=== PATIENT | female | born 1970 | race Caucasian/White ===

== ENCOUNTER 2017-02-19 08:38 | Emergency (ER) | payer OTHER ==
--- NOTE | 2017-02-19 08:59 | ED Physician Documentation ---
History of Present Illness - Stated complaint Stated Complaint: HEADACHE - Chief complaint Chief Complaint: Neuro - Additonal information Additional information: hx from pt and EMR per EMR long hx headaches - not migraines - has had an extensive workup including multiple MRIs and LPs to rule out pseudotumor cerebri - pt states her HERNANDEZ mimic this entitiy and she did occ have relief with removing CSF infreq ER user - last vist 18 m ago - was successfully txed with toradol benadryl compazine and decadron this HERNANDEZ is similar to prior but has been going on for 6 weeks, is throbiing but also needle like and she has popping in her neck no fever no numbness or weakness no CO exposure n trauma denies preg has tried her mm relaxant diuretic magenesium and antidepressant combo at home - usually works for her but this time s relief Review of Systems Constitutional: denies: Fever, Chills Eyes: reports: Photophobia Ears: denies: Loss of hearing (whooshing in her ears) Cardiac: denies: Chest pain / pressure Respiratory: denies: Dyspnea, Cough GI: denies: Abdominal Pain : denies: Now EGA (denies) Musculoskeletal: reports: Neck pain (pops) Neurologic: reports: Headache. denies: Generalized weakness, Focal weakness, Numbness, Head injury Endocrine: denies: Easy bruising / bleeding Immunocompromised: denies: Immunocompromised PD PAST MEDICAL HISTORY - Past Medical History Cardiovascular: None Respiratory: None Neuro: Headache/migraine Endocrine/Autoimmune: None HEENT: None - Past Surgical History Past Surgical History: Yes General: Cholecystectomy /RN SCHOOL: section - Present Medications Home Medications: Ambulatory Orders Medication Instructions Recorded Confirmed Furosemide [Lasix] 0 mg PO DAILY 07/29/15 02/19/17 Gabapentin 0 mg PO TID 07/29/15 02/19/17 Multivitamin [Multivitamins] 1 tab PO DAILY 07/29/15 02/19/17 Ondansetron HCl [Zofran] 0 mg PO DAILY 07/29/15 02/19/17 Promethazine [Phenergan] 0 mg PO DAILY 07/29/15 02/19/17 Ropinirole HCl [Requip] 0 mg PO DAILY 07/29/15 02/19/17 Ergocalciferol [Vitamin D2] 50,000 unit PO Q7D 02/19/17 02/19/17 Magnesium Oxide 500 mg PO DAILY 02/19/17 02/19/17 Mirtazapine [Remeron] 15 mg PO HS 02/19/17 02/19/17 Pantoprazole [Protonix] 40 mg PO DAILY 02/19/17 02/19/17 tiZANidine [Zanaflex] 2 mg PO Q8H 02/19/17 02/19/17 traZODone [Desyrel] 50 mg PO HS 02/19/17 02/19/17 - Allergies Allergies/Adverse Reactions: Allergies Allergy/AdvReac Type Severity Reaction Status Date / Time codeine AdvReac Unknown Verified 02/19/17 08:44 ibuprofen [From Motrin] AdvReac Unknown Verified 02/19/17 08:44 morphine AdvReac Unknown Verified 02/19/17 08:44 sucralfate [From Carafate] AdvReac Unknown Verified 02/19/17 08:44 Sulfa (Sulfonamide AdvReac Unknown Verified 02/19/17 08:44 Antibiotics) sumatriptan [From Imitrex] AdvReac Unknown Verified 02/19/17 08:44 sumatriptan succinate * AdvReac Unknown Verified 02/19/17 08:44 [From Imitrex] topiramate [From Topamax] AdvReac Unknown Verified 02/19/17 08:44 zolmitriptan [From Zomig] AdvReac Unknown Verified 02/19/17 08:44 - Social History Does the pt smoke?: No Smoking Status: Never smoker Does the pt drink ETOH?: No Does the pt have substance abuse?: No - Immunizations Immunizations are current?: Yes PD ED PE NORMAL - Vitals Vital signs reviewed: Yes - General General: Alert and oriented X 3 - HEENT HEENT: PERRL (3, reactive EOMI, globes soft, no TA TTP) - Neck Neck: Supple, no meningeal sign - Cardiac Cardiac: RRR - Respiratory Respiratory: No respiratory distress, Clear bilaterally - Abdomen Abdomen: Soft, Non tender - Derm Derm: Normal color - Neuro Neuro: Alert and oriented X 3 Eye Opening: Spontaneous Motor: Obeys Commands Verbal: Oriented GCS Score: 15 Results - Vitals Vitals: Vital Signs - 24 hr 02/19/17 08:41 Temperature 36.4 C L Heart Rate 87 Respiratory 16 Rate Blood Pressure 137/77 H O2 Saturation 100 Oxygen O2 Source Room air PD MEDICAL DECISION MAKING - ED course ED course: reviewed EMR and gave pt same meds as worked last time + lido patch for her neck pt felt better with meds Departure - Departure Disposition: 01 Home, Self Care Clinical Impression: Headache Qualifiers: Headache type: unspecified Headache chronicity pattern: unspecified pattern Intractability: not intractable Qualified Code(s): R51 - Headache Condition: Good Instructions: ED Cephalgia Unspecified Comments: Take the lidocaine patch off before bedtime tonight Continue all of your usual headache medications. Rest and drink plenty of fluids Forms: Activity restrictions
[2017-02-19] MEDS ORDERED: LIDOCAINE PATCH 5% TOP STA (09:07)
[2017-02-19] MEDS ORDERED: diphenhydrAMINE INJ 50 MG/ML VIAL IVP STA (09:07)
[2017-02-19] MEDS ORDERED: DEXAMETHASONE 10 MG/ML VIAL IVP STA (09:07)
[2017-02-19] MEDS ORDERED: KETOROLAC 60 MG/2 ML VIAL IVP STA (09:07)
[2017-02-19] MEDS ORDERED: SODIUM CHLORIDE 0.9% 1,000 ML IV ONE (09:07)
[2017-02-19] MEDS ORDERED: PROCHLORPERAZINE 10 MG/2 ML VIAL IVP STA (09:07)
[2017-02-19 10:50] VITALS: BP 136/86
== END 2017-02-19 10:50 | disposition home or self-care (01) ==
LOC: ED 08:38
DX: R51 Headache (principal)
CPT/HCPCS: 96374; 96375; 99283; 99284; A9270

== ENCOUNTER 2022-01-28 08:05 | Outpatient (CLI) | payer OTHER ==
--- NOTE | 2022-01-29 08:40 | MRI Report ---
PROCEDURE: KNEE WO - RT INDICATIONS: PAIN IN RIGHT KNEE TECHNIQUE: Noncontrast sagittal PD fast spin echo and T2 fast spin echo with fat saturation, sagittal 3-D spoile d GE with fat saturation; coronal T1 spin echo and PD fast spin echo with fat saturation, and axial P D fast spin echo with fat saturation through the knee. COMPARISON: None. FINDINGS: Image quality: Excellent. Anterior cruciate ligament: Intact. Posterior cruciate ligament: Intact. Medial collateral ligament: Intact. Lateral collateral ligament: Intact. Medial meniscus: There is free edge fibrillation at the body of the medial meniscus with a discrete tear. Mild intrasubstance degeneration is noted. Lateral meniscus: Mild intrasubstance degeneration within the body lateral meniscus without a discre te tear. Medial and lateral tendons: There is mild insertional tendinosis of the distal semimembranosus tendon . Visualized portions of the pes anserinus tendons appear normal. The popliteus tendon appears inta ct. Iliotibial band appears normal. Anterior structures: Mild patella abida. The distal quadriceps tendon is intact. There is no patellar subluxation. No femoral trochlear dysplasia or ventral trochlear prominence. Mild edema is seen at th e superolateral aspect of the infrapatellar fat pad. Bones: No acute trabecular bone injury or fracture. Medial femorotibial cartilage: Moderate partial-thickness cartilage irregularity is seen throughout the weightbearing portion of the medial femoral condyle with marginal osteophyte formation. Lateral femorotibial cartilage: There is deep cartilage fissuring at the central weightbearing porti on of the lateral femoral condyle and partial-thickness cartilage irregularity at the posterior weigh tbearing portion and mild surface cartilage irregularity and adjacent portions of the lateral tibial plateau. Small marginal osteophytes are present. Patellofemoral cartilage: Full-thickness cartilage loss is seen at the median ridge of the patella w ith subchondral cystic changes. There is adjacent high-grade partial thickness cartilage loss at the medial and lateral patellar facets as well as in the trochlear groove and medial femoral trochlea. Ma rginal osteophytes are present. Soft tissues: There is a medium-sized joint effusion. A moderate medial popliteal cyst is seen with adjacent soft tissue edema that may indicate prior cyst rupture. The musculature surrounding the kne e is normal in bulk. IMPRESSION: 1.Mild free edge fibrillation at the body of the medial meniscus without a discrete meniscal tear barby ntified. Mild intrasubstance degeneration of the medial and lateral menisci. 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 There is grade II to III chondromalacia in the medial and lateral compartments. 3 compar tmental marginal osteophytes are present. 3.Mild patella abida. Small amount of edema at the superolateral aspect of Hoffa's fat pad may be rela phuong to the joint effusion versus lateral femoral condyle-patellar tendon friction syndrome. 4.Cruciate and collateral ligaments are intact. No acute trabecular bone injury. 5.Moderate joint effusion. Moderate medial popliteal cyst with signs of prior cyst rupture. Reviewed by: Puma Mckenzie MD on 01/29/2022 8:39 AM PST Approved by: Puma Mckenzie MD on 01/29/2022 8:39 AM PST Station ID: [id number]
== END 2022-01-28 08:06 | disposition home or self-care (01) ==
LOC: DI 08:05
PROVIDERS: ATTEND Family Medicine
DX: M17.11 Unilateral primary osteoarthritis, right knee (principal); M94.261 Chondromalacia, right knee; M25.461 Effusion, right knee; M23.303 Other meniscus derangements, unspecified medial meniscus, right knee; M23.300 Other meniscus derangements, unspecified lateral meniscus, right knee

== ENCOUNTER 2023-02-21 19:55 | Emergency (ER) | payer OTHER ==
--- NOTE | 2023-02-21 20:07 | ED Physician Documentation ---
PD HPI CHEST PAIN - Stated complaint Stated Complaint: CHEST PX/GEN. WEAKNESS - Chief complaint Chief Complaint: Cardiac - History obtained from History obtained from: Patient - Additional information Additional information: 52 yo female presents to the ER with chest pain. Hx of fibromyalgia and gastroparesis states she was cooking in the kitchen when she started to feel week and states "my legs collapsed" she says this happened twice and then about an hour later she started experiencing chest pain that radiated to her left side. Currently she denies nausea, vomiting, dizziness or vision changes. Pt denies hitting head when she states she collapsed at home and states nothing like this has ever happened before. PD PAST MEDICAL HISTORY - Past Medical History Cardiovascular: None Respiratory: None Endocrine/Autoimmune: None HEENT: None - Past Surgical History Past Surgical History: Yes General: Cholecystectomy /[employer]: section - Present Medications Home Medications: Ambulatory Orders Medication Instructions Recorded Confirmed Furosemide [Lasix] 20 mg PO DAILY 07/29/15 02/21/23 Gabapentin 1,200 mg PO TID 07/29/15 02/21/23 Multivitamin [Multivitamins] 1 tab PO DAILY 07/29/15 02/21/23 Promethazine [Phenergan] 25 mg PO Q6HR PRN 07/29/15 02/21/23 Ergocalciferol [Vitamin D2] 50,000 unit PO Q7D 02/19/17 02/21/23 Magnesium Oxide 500 mg PO DAILY 02/19/17 02/21/23 tiZANidine [Zanaflex] 2 mg PO Q8H 02/19/17 02/21/23 traZODone [Desyrel] 50 mg PO HS PRN 02/19/17 02/21/23 Atorvastatin [Lipitor] 20 mg PO QPM 02/21/23 02/21/23 Ondansetron HCl 4 mg PO Q6HR PRN 02/21/23 02/21/23 Pantoprazole Sodium 20 mg PO BID 02/21/23 02/21/23 Potassium Chloride [Klor-Con 10] 10 meq PO DAILY 02/21/23 02/21/23 Prochlorperazine Maleate 10 mg PO BID 02/21/23 02/21/23 [Compazine] rOPINIRole [Requip] 2 mg PO QPM 02/21/23 02/21/23 traMADol [Ultram] 50 - 100 mg PO Q4-6H PRN 02/21/23 02/21/23 - Allergies Allergies/Adverse Reactions: Allergies Allergy/AdvReac Type Severity Reaction Status Date / Time codeine AdvReac Unknown Verified 02/21/23 20:11 ibuprofen [From Motrin] AdvReac Unknown Verified 02/21/23 20:11 morphine AdvReac Unknown Verified 02/21/23 20:11 sucralfate [From Carafate] AdvReac Unknown Verified 02/21/23 20:11 Sulfa (Sulfonamide AdvReac Unknown Verified 02/21/23 20:11 Antibiotics) sumatriptan [From Imitrex] AdvReac Unknown Verified 02/21/23 20:11 sumatriptan succinate * AdvReac Unknown Verified 02/21/23 20:11 [From Imitrex] topiramate [From Topamax] AdvReac Unknown Verified 02/21/23 20:11 zolmitriptan [From Zomig] AdvReac Unknown Verified 02/21/23 20:11 - Social History Does the pt smoke?: No Smoking Status: Never smoker Does the pt drink ETOH?: No Does the pt have substance abuse?: No - Immunizations Immunizations are current?: Yes PD ED PE NORMAL - Vitals Vital signs reviewed: Yes - General General: Alert and oriented X 3 - HEENT HEENT: Atraumatic, PERRL, EOMI - Neck Neck: No JVD - Cardiac Cardiac: RRR, No murmur, No gallop, Strong equal pulses - Respiratory Respiratory: No respiratory distress, Clear bilaterally - Abdomen Abdomen: Normal bowel sounds, Non tender - Derm Derm: Normal color - Extremities Extremities: No deformity, No edema, No calf tenderness / cord - Psych Psych: Normal mood Results - Vitals Vitals: Vital Signs - 24 hr 02/21/23 02/21/23 02/21/23 20:00 20:35 21:06 Temperature 36.4 C L 36.0 C L Heart Rate 76 84 74 Respiratory 18 18 15 Rate Blood Pressure 120/68 102/75 104/62 O2 Saturation 100 100 100 02/21/23 02/21/23 21:30 22:00 Temperature Heart Rate 75 75 Respiratory 17 12 Rate Blood Pressure 107/61 107/69 O2 Saturation 98 98 Oxygen O2 Source Room air - EKG (time done) 2013 EKG releavant findings:: EKG personally interpreted by author of this note. Relevant findings are: Rate: Rate (enter#) (74) Rhythm: NSR [facility]: Normal Intervals: Normal [place] QRS: Normal Ischemia: Normal ST segments Computer interpretation: Agree with computer - Labs Labs: Laboratory Tests 02/21/23 02/21/23 02/21/23 20:21 20:21 20:21 WBC 10.6 RBC 4.57 Hgb 13.1 Hct 41.2 MCV 90.2 MCH 28.7 MCHC 31.8 L RDW 13.3 Plt Count 383 MPV 9.1 Neut # (Auto) 6.9 H Lymph # (Auto) 2.9 Hardy # (Auto) 0.6 Eos # (Auto) 0.2 Baso # (Auto) 0.1 Absolute Nucleated RBC 0.00 Nucleated RBC % 0.0 Sodium 142 Potassium 3.5 Chloride 101 Carbon Dioxide 26 Anion Gap 15.0 H BUN 8 Creatinine 1.0 Estimated GFR (MDRD) 59 L Glucose 95 Calcium 9.6 Magnesium 2.1 Total Bilirubin 0.8 AST 16 ALT 15 Alkaline Phosphatase 88 Troponin I High Sens 2.4 Total Protein 7.9 Albumin 4.6 Globulin 3.3 Albumin/Globulin Ratio 1.4 - Rads (name of study) Chest x-ray Relevant Findings:: Final report received, EMP independent interpretation of test (No consolidation, no cardiomegaly, diminished lung volumes) PD Medical Decision Making - ED course ED course: Exam without evidence of volume overload so doubt heart failure. EKG without signs of active ischemia. Given the timing of pain to ER presentation, Delta troponin was ordered, initial troponin was negative second troponin is pending, Overall I have a low suspicion for this being related to an NSTEMI Presentation not consistent with acute PE (Wells low risk), pneumothorax (not visualized on chest xr), thoracic aortic dissection, pericarditis, tamponade, pneumonia (no infectious symptoms, clear chest xr), myocarditis (no recent illness, neg trop). HEART score:2 so plan to a discharge patient home with PCP follow up after 2nd troponin results if negative. CBC complete no leukocytosis no anemia, CMP also unremarkable, no electrolyte abnormalities. Report given to Dr. Mendez due to change of shift and will DC patient if 2nd troponins are negative. Pain treated with Tylenol and Toradol, nausea treated with zofran. Departure - Departure Clinical Impression: Atypical chest pain Instructions: ED Chest Pain NonCardiac Comments: Thank you for trusting us with your care. We have done a complete work up and are not seeing anything abnormal on your labs, chest X-ray, or ECG for possible heart attack or other emergent findings. If you go home and your chest pain worsens, you start to develope dizziness, shortness of breath, vision changes or any other concerning symptoms please come back to the emergency department for reevaluation. Forms: PCP List
[2023-02-21 20:30] LABS: BASOPHILS # (AUTO) 0.1 10^3/uL (0.0-0.1); BASOPHILS % (AUTO) 0.5 %; EOSINOPHILS # (AUTO) 0.2 10^3/uL (0.0-0.7); EOSINOPHILS % (AUTO) 1.6 %; HCT - HEMATOCRIT 41.2 % (37.0-47.0); HGB - HEMOGLOBIN 13.1 g/dL (12.0-16.0); LYMPHOCYTES # (AUTO) 2.9 10^3/uL (1.5-3.5); LYMPHOCYTES % (AUTO) 27.1 %; MEAN CORPUSCULAR HEMOGLOBIN 28.7 pg (27.0-31.0); MEAN CORPUSCULAR HGB CONC 31.8 g/dL (32.0-36.0); MEAN CORPUSCULAR VOLUME 90.2 fL (81.0-99.0); MEAN PLATELET VOLUME 9.1 fL (7.9-10.8); MONOCYTES # (AUTO) 0.6 10^3/uL (0.0-1.0); MONOCYTES % (AUTO) 5.8 %; NEUTROPHILS # (AUTO) 6.9 10^3/uL (1.5-6.6); NEUTROPHILS % (AUTO) 64.7 %; PLT - PLATELET COUNT 383 10^3/uL (130-450); RED BLOOD COUNT 4.57 10^6/uL (4.20-5.40); RED CELL DISTRIBUTION WIDTH 13.3 % (12.0-15.0); WHITE BLOOD COUNT 10.6 x10^3/uL (4.8-10.8)
--- NOTE | 2023-02-21 21:05 | XRAY Report ---
PROCEDURE: Chest 2V INDICATIONS: chest pain TECHNIQUE: 2 views of the chest were acquired. COMPARISON: None. FINDINGS: Surgical changes and devices: None. Lungs and pleura: Low lung volumes. No dense consolidation or pleural effusion. Mediastinum: Normal heart size Bones and chest wall: Limited evaluation on chest radiography, no gross abnormality. There are degene rative changes. IMPRESSION: No acute radiographic abnormality. Low lung volumes. If there is high concern for occult injury, cons ider repeat radiography or cross-sectional imaging. Reviewed by: Josh Abbasi MD on 02/21/2023 9:04 PM PST Approved by: Josh Abbasi MD on 02/21/2023 9:04 PM PST Station ID: [id number]
[2023-02-21 21:07] LABS: ALBUMIN 4.6 g/dL (3.2-5.5); ALBUMIN/GLOBULIN RATIO 1.4 (1.0-2.2); BILIRUBIN,TOTAL 0.8 mg/dL (0.2-1.0); CALCIUM 9.6 mg/dL (8.5-10.3); MAGNESIUM 2.1 mg/dL (1.7-2.3); POTASSIUM 3.5 mmol/L (3.5-4.5); TOTAL PROTEIN 7.9 g/dL (6.4-8.9)
[2023-02-21] MEDS ORDERED: ONDANSETRON 4 MG/2 ML VIAL IVP STA (21:49)
[2023-02-21] MEDS ORDERED: KETOROLAC 15 MG/ML VIAL IVP PRN (21:55)
[2023-02-21 23:24] VITALS: BP 119/77; O2SAT 97
--- NOTE | 2023-02-22 02:43 | ED Physician Documentation ---
ED Addendum - Addendum Addendum: 02/23/23 20:27 I received sign out on this patient from JEAN-PIERRE Heard; please see her note from complete H&P. In brief, patient presents with chief complaint of chest pain and work up is unremarkable including EKG, CXR, and blood tests including hs-cTn. At the time of turn over of care, a repeat hs-cTn is pending. The repeat troponin is 2.3 (initial was 2.4). I reviewed the result with patient. She is in NAD and is comfortable with d/c home.
== END 2023-02-21 23:20 | disposition home or self-care (01) ==
LOC: ED 19:55
DX: R07.89 Other chest pain (principal)
CPT/HCPCS: 36415; 80053; 83735; 84484; 85025; 93005; 96374; 96375; 99284